=== PATIENT | female | born 1985 | race Caucasian/White ===

== ENCOUNTER 2016-11-09 12:04 | Emergency (ER) | payer OTHER ==
[2016-11-09 12:59] LABS: BASOPHIL 0.1 % (0-2); EOSINOPHIL 1.3 % (0-5); HCT 41.1 % (37.0-47.0); HGB 13.9 g/dl (12.5-16.0); MCH 30.2 pg (25.0-31.0); MCHC 33.8 g/dL (32.0-36.0); MCV 89.3 fL (78.0-100.0); MONOCYTE 7.5 % (0-12); MPV 10.7 fL (6.0-9.5); NEUTROPHIL 65.1 % (41-80); PLT 261 K/uL (150-400); RDW 13.8 % (11.5-14.0)
[2016-11-09 13:02] LABS: BILIRUBIN NEGATIVE (NEGATIVE); BLOOD NEGATIVE Ery/uL (NEGATIVE); CLARITY SLIGHTLY HAZY (CLEAR); COLOR YELLOW (YELLOW); GLUCOSE (U) NORMAL (NORMAL); KETONE (U) NEGATIVE (NEGATIVE); LEUKOCYTES 1+ Leu/uL (NEGATIVE); NITRITE NEGATIVE (NEGATIVE); PROTEIN NEGATIVE (NEGATIVE); UROBILINOGEN 0.2 mg/dL (0.2-1.0)
[2016-11-09 13:06] LABS: AMORPHOUS URATES CRYSTALS MODERATE; BACTERIA 2+
[2016-11-09 13:18] LABS: ALBUMIN 4.5 g/dL (3.5-5.0); BILIRUBIN - TOTAL 0.2 mg/dL (0.1-1.0); CREATININE 0.8 mg/dL (0.5-1.0); GLOBULIN (CALCULATION) 2.6 g/dL (2.2-4.2); PHOSPHORUS 2.3 mg/dL (2.7-4.5); TOTAL PROTEIN 7.1 g/dL (6.4-8.3)
== END 2016-11-09 16:42 | disposition home or self-care (01) ==
LOC: FER 12:04
PROVIDERS: Emergency Medicine
DX: N30.90 Cystitis, unspecified without hematuria (principal); K59.00 Constipation, unspecified; Z88.0 Allergy status to penicillin; Z88.2 Allergy status to sulfonamides; Z88.6 Allergy status to analgesic agent; Z88.1 Allergy status to other antibiotic agents; Z87.442 Personal history of urinary calculi; Z98.890 Other specified postprocedural states
CPT/HCPCS: 36415; 80053; 81001; 84100; 85025; 87076; 87088; 87186

== ENCOUNTER 2017-02-01 10:16 | Emergency (ER) | payer OTHER ==
[2017-02-01 10:56] LABS: BILIRUBIN 2+ mg/dL (NEGATIVE); BLOOD NEGATIVE Ery/uL (NEGATIVE); CLARITY CLEAR (CLEAR); COLOR ORANGE (YELLOW); GLUCOSE (U) 1+ mg/dL (NORMAL); KETONE (U) TRACE mg/dL (NEGATIVE); LEUKOCYTES 2+ Leu/uL (NEGATIVE); NITRITE POSITIVE (NEGATIVE); PROTEIN 3+ mg/dL (NEGATIVE); SPECIFIC GRAVITY <=1.005 (1.001-1.030); UROBILINOGEN >=8.0 mg/dL (0.2-1.0)
== END 2017-02-01 12:13 | disposition home or self-care (01) ==
LOC: FER 10:16
PROVIDERS: Emergency Medicine
DX: N30.00 Acute cystitis without hematuria (principal); I10 Essential (primary) hypertension; Z90.49 Acquired absence of other specified parts of digestive tract; Z88.1 Allergy status to other antibiotic agents; Z88.2 Allergy status to sulfonamides; Z88.0 Allergy status to penicillin; Z79.899 Other long term (current) drug therapy
CPT/HCPCS: 81001; 87088